=== PATIENT | male | born 1945 | race Caucasian/White ===

== ENCOUNTER 2019-05-20 05:17 | Inpatient (IN) ==
[2019-05-17 10:00] LABS: HEMATOCRIT 30.5 % (42.0-52.0); HEMOGLOBIN 9.2 g/dL (14.0-18.0); MCH 27.1 PG (27-31); MCHC 30.2 g/dL (33-37); MCV 89.7 FL (81-99); MPV 10.3 FL (7.4-10.4); RBC 3.4 XMIL (4.7-6.1); RDW 15.7 % (11.5-14.5); WBC 9.8 X1000 (4.8-10.8)
--- NOTE | 2019-05-17 10:10 | EKG Report ---
Test Performed on : 05/17/2019 09:17:24 AM Test Reason : PAT Blood Pressure : / mmHG Vent. Rate : 065 BPM Atrial Rate : 065 BPM P-R Int : 216 ms QRS Dur : 098 ms QT Int : 420 ms P-R-T Axes : 057 -03 055 degrees QTc Int : 436 ms Sinus rhythm. with 1st degree AV block. Nonspecific ST and T wave abnormality Abnormal ECG When compared with ECG of 02-MAY-2017 06:28, TN interval has increased Criteria for Inferior infarct are no longer present Confirmed by Alexandr Duke MD ([id number]) on 05/19/2019 3:22:30 PM
[2019-05-17 10:16] LABS: CALCIUM 9.1 mg/dL (8.8-10.2); CREATININE 1.2 mg/dL (0.7-1.2); POTASSIUM 4.8 mmol/L (3.5-5.1)
[2019-05-20] MEDS ORDERED: INVANZ 1 GM/NS 1 GM/50 ML IVPB ONE (05:42)
[2019-05-20] MEDS ORDERED: LR 1,000 ML ONE (05:42)
[2019-05-20] MEDS ORDERED: ENTEREG ONE (05:42)
[2019-05-20] MEDS ORDERED: DIPRIVAN 1% ONE (06:43)
[2019-05-20] MEDS ORDERED: XYLOCAINE-MPF 2% ONE (06:44)
[2019-05-20] MEDS ORDERED: ROBINUL ONE (06:44)
[2019-05-20] MEDS ORDERED: QUELICIN (DOSE) ONE (06:44)
[2019-05-20] MEDS ORDERED: ZOFRAN ONE ×2 (07:09→09:14)
[2019-05-20] MEDS ORDERED: OFIRMEV 1000 MG/ISOTONIC SOLN 1,000 MG/100 ML BOTTLE ONE (07:09)
[2019-05-20] MEDS ORDERED: BRIDION ONE (07:55)
[2019-05-20] MEDS ORDERED: EPHEDRINE ONE (07:59)
[2019-05-20] MEDS ORDERED: DILAUDID ONE (08:26)
[2019-05-20 08:57] LABS: URINE SOURCE CATH
[2019-05-20 09:01] LABS: BILIRUBIN URINE NEGATIVE (NEGATIVE); BLOOD URINE NEGATIVE (NEGATIVE); COLOR YELLOW; GLUCOSE URINE NEGATIVE (NEGATIVE); KETONE URINE NEGATIVE (NEGATIVE); LEUKOCYTES URINE NEGATIVE (NEGATIVE); NITRITE URINE NEGATIVE (NEGATIVE); PH URINE 5.5; PROTEIN URINE 30 mg/dL (NEGATIVE); SP GRAVITY URINE 1.015; TURBIDITY URINE HAZY (CLEAR); UROBILINOGEN URINE NORMAL (NORMAL)
[2019-05-20 09:04] LABS: UR EPITHELIAL CELLS <10 /HPF (<10); URINE BACTERIA NEGATIVE /HPF; URINE RBC <10 /HPF (<10); URINE WBC <10 /HPF (<10)
[2019-05-20] MEDS ORDERED: DECADRON ONE (09:14)
[2019-05-20] MEDS ORDERED: TORADOL ONE (09:14)
--- NOTE | 2019-05-20 09:14 | OPERATIVE NOTE ---
PROCEDURE DATE: 05/20/2019 PROCEDURE PERFORMED: Open transverse colectomy with mobilization of the splenic flexure and mobilization hepatic flexure. SURGEON: Talat Rizo MD MILK TESTER: Smitha Hi MD; who assisted in all parts of the procedure including the open dissection, resection, and closure. 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 DESCRIPTION OF PROCEDURE: Satisfactory general endotracheal anesthesia achieved abdomen is prepped and draped in a sterile fashion. We made a midline incision. We carried our incision through the subcutaneous tissue and through the midline fascia. The patient had a previous chevron incision and a previous lower midline incision. We carefully opened the fascia, took care not to injure the contents below. After entering the abdominal cavity, we took the adhesions down to the back of the anterior abdominal wall by in a chevron incision. We then mobilized the ascending colon and hepatic flexure, bringing that portion of the colon out of the retroperitoneum. We then divided the white line of Toldt along the descending colon and progressed cephalad toward the splenic flexure. The splenic flexure was way up into the left upper quadrant all the way to the diaphragm due to the patient's previous distal pancreatectomy and splenectomy. We carefully dissected the splenic flexure down until we could identify the Gerota's fascia. We then took the greater omentum off the transverse colon from right to left so that we could mobilize the transverse portion of the colon. The tumor was palpated. There were some nodes noted that were filled with Yoly Ink from the previous tattooing. We then chose a spot approximately 10 cm proximal to the lesion and cleaned off the colon and transected it there with a CRISTINA 80 blue cartridge. We scored the peritoneum all the way to the takeoff of the middle colic vessels and we scored the peritoneum on the left side as well to a portion of the transverse colon that was about at least 10 cm from the tumor as well. Here we also divided the colon with a CRISTINA 80 blue cartridge. The greater omentum had been , we then began dividing the mesentery from peripheral toward the base of the mesentery using the LigaSure. As we reached the base of the mesentery at the takeoff of the middle colic vessels we clamped the middle colic vessels with Yuki clamps and divided the tissue and handed off the specimen. We suture ligated the vessels with 2-0 silk suture ligature. We then approximated the end of the distal transverse colon to the end of the ascending colon and we placed them [id number], placed a 3-0 silk to approximate them [id number]. We cut off the corners of the bowel introduced the CRISTINA 80 blue cartridge, and did a [id number] stapled anastomosis. We grasped the open end with Allis and then used a TA 60 blue cartridge to staple off of each end of the colon. We used 3-0 silks in a Lembert fashion to over sew the staple line. We used a 3-0 silk at the opposite end of the stapled anastomosis to take the tension off the staple line. We changed gloves at this point. We then closed the mesentery with 3-0 silks. Anastomosis was satisfactory patent. Hemostasis was satisfactory. We irrigated out the area of the operation. Again, hemostasis was satisfactory. The left upper quadrant was hemostatic. No other abnormalities were identified intra-abdominally. We then proceeded to close the peritoneum with a running 2-0 chromic. We closed the fascia with running #2 Prolene. The mass was noted in the anterior abdominal wall subcutaneous fat, we removed it and sent it for pathology. We irrigated out the subcutaneous tissue, then closed the skin with robin. Sterile dressings applied. He tolerated it well was sent to the recovery room in satisfactory condition. cc: Talat Rizo MD MTDD
[2019-05-20 09:17] LABS: URINE CASTS EPITHELIAL PRESENT; URINE CRYSTALS NONE SEEN; URINE SMALL ROUND CELLS NONE SEEN; URINE YEAST NONE SEEN
[2019-05-20] MEDS ORDERED: NS 1,000 ML ONE (09:27)
[2019-05-20] MEDS ORDERED: NITROGLYCERIN SL PRN (10:21)
[2019-05-20] MEDS ORDERED: ZOFRAN IV PRN (10:21)
[2019-05-20] MEDS: COZAAR PO SCH (11:22)
[2019-05-20] MEDS: JANUVIA PO SCH ×2 (11:24→20:40)
[2019-05-20] MEDS: GLUCOPHAGE PO SCH ×2 (11:24→20:40)
[2019-05-20] MEDS: PERIDEX MT SCH ×2 (11:25→20:41)
[2019-05-20] MEDS: LIORESAL PO SCH ×2 (11:26→20:41)
[2019-05-20] MEDS: LOPRESSOR PO SCH ×2 (11:33→20:39)
[2019-05-20] MEDS: DILAUDID IV PRN ×5 (11:33→23:55)
[2019-05-20] MEDS: PROTONIX PO SCH (11:33)
[2019-05-20] MEDS: OFIRMEV 1000 MG/ISOTONIC SOLN 1,000 MG/100 ML BOTTLE IV SCH ×2 (13:19→20:35)
--- NOTE | 2019-05-20 16:00 | GENERAL SURGERY PROGRESS NOTE ---
DATE: 05/20/2019 Mr. Jacobsen is awake and alert, doing generally well. His hemodynamics are satisfactory. His bandage is dry. We will try to control his pain with the Ofirmev and Dilaudid. cc: Talat Rizo MD
[2019-05-20] MEDS: NS 1,000 ML IV SCH (19:34)
[2019-05-20] MEDS: NORVASC PO SCH (20:38)
[2019-05-20] MEDS: ULTRAM PO PRN (20:38)
[2019-05-20] MEDS: LEXAPRO PO SCH (20:41)
[2019-05-20] MEDS: LOVENOX SUBQ SCH (20:41)
[2019-05-20] MEDS ORDERED: PATIENT'S OWN MED PO SCH (21:00)
[2019-05-20] MEDS: PATIENT'S OWN MED PO SCH (21:28)
[2019-05-21] MEDS: ULTRAM PO PRN (02:28)
[2019-05-21] MEDS: OFIRMEV 1000 MG/ISOTONIC SOLN 1,000 MG/100 ML BOTTLE IV SCH ×4 (02:28→21:18)
[2019-05-21] MEDS: NS 1,000 ML IV SCH ×2 (03:00→15:30)
[2019-05-21] MEDS: DILAUDID IV PRN ×6 (03:00→20:45)
[2019-05-21 06:52] LABS: HEMATOCRIT 26.1 % (42.0-52.0); HEMOGLOBIN 8.2 g/dL (14.0-18.0); MCH 28.6 PG (27-31); MCHC 31.4 g/dL (33-37); MCV 90.9 FL (81-99); MPV 10.2 FL (7.4-10.4); RBC 2.87 XMIL (4.7-6.1); RDW 16.3 % (11.5-14.5); WBC 14.01 X1000 (4.8-10.8)
[2019-05-21 07:13] LABS: AGAP 11; BUN 12 mg/dL (8-22); CALCIUM 8.9 mg/dL (8.8-10.2); CHLORIDE 102 mmol/L (98-107); COSMO 276; ESTIMATED GFR > 60; GLUCOSE 174 mg/dL (70-104); POTASSIUM 4.3 mmol/L (3.5-5.1); SODIUM 136 mmol/L (136-145); TCO2 23 mmol/L (25-35)
[2019-05-21] MEDS ORDERED: SODIUM CHLORIDE 0.9% INJ PRN (08:08)
[2019-05-21] MEDS ORDERED: PHENERGAN IV PRN (08:08)
[2019-05-21] MEDS: LIORESAL PO SCH ×2 (08:30→21:18)
[2019-05-21] MEDS: PERIDEX MT SCH ×2 (08:30→21:20)
[2019-05-21] MEDS: COZAAR PO SCH (08:31)
[2019-05-21] MEDS: JANUVIA PO SCH ×2 (08:31→21:18)
[2019-05-21] MEDS: GLUCOPHAGE PO SCH ×2 (08:31→21:18)
[2019-05-21] MEDS: ENTEREG PO SCH ×2 (08:31→21:17)
[2019-05-21] MEDS: PROTONIX PO SCH (08:31)
[2019-05-21] MEDS: LOPRESSOR PO SCH ×2 (08:32→21:17)
--- NOTE | 2019-05-21 08:35 | GENERAL SURGERY PROGRESS NOTE ---
DATE: 05/21/2019 SUBJECTIVE: Mr. Jacobsen did not get much rest last night. OBJECTIVE: He is afebrile. Heart rate 90. Blood pressure 137/63. He has bilateral breath sounds, even though they are better on the right than the left. His urine output appears acceptable. White count is 14,000, hemoglobin 8.2, hematocrit 26, BUN 12, creatinine 1. PLAN: He did have some nausea through the night. I will add Phenergan to his regimen in case Zofran is not adequate, and hope that we can avoid an NG tube. cc: Talat Rizo MD
[2019-05-21] MEDS: LEXAPRO PO SCH (21:17)
[2019-05-21] MEDS: NORVASC PO SCH (21:18)
[2019-05-21] MEDS: LOVENOX SUBQ SCH (21:18)
[2019-05-21] MEDS: PATIENT'S OWN MED PO SCH ×2 (21:20)
[2019-05-22] MEDS: ULTRAM PO PRN ×3 (00:30→18:00)
[2019-05-22] MEDS: DILAUDID IV PRN ×3 (00:31→08:38)
[2019-05-22] MEDS: NS 1,000 ML IV SCH ×3 (01:55→12:25)
[2019-05-22] MEDS: OFIRMEV 1000 MG/ISOTONIC SOLN 1,000 MG/100 ML BOTTLE IV SCH ×4 (01:55→19:41)
--- NOTE | 2019-05-22 06:05 | GENERAL SURGERY PROGRESS NOTE ---
DATE: 05/22/2019 SUBJECTIVE: The patient is doing okay. He did have some nausea yesterday and threw up. He has not passed any gas. OBJECTIVE: Vital Signs: The patient is currently afebrile. His vital signs are stable. General: No acute distress. Cardiovascular: Regular rate and rhythm. Lungs: Grossly clear. No increased labored breathing. Abdomen: Soft. Incision with dressing intact. Appropriately tender. Hypoactive bowel sounds. ASSESSMENT AND PLAN: A 73-year-old gentleman, currently postoperative day #2 from open transverse colectomy. Postoperative state: At this time the patient still likely has a postoperative ileus. He has had some nausea so we will keep him NPO with just ice chips right now. He is on tramadol for pain medicine. He is also on Lovenox. His Jaquez catheter is going to come out. We also have him on Entereg and Tylenol. We will continue to monitor him. Hopefully he will start to have some return of bowel function in the near future. cc: MD Talat Fernández MD [facility] HOSPITALFercho
[2019-05-22 06:50] LABS: AGAP 8; BUN 11 mg/dL (8-22); CALCIUM 8.7 mg/dL (8.8-10.2); CHLORIDE 106 mmol/L (98-107); COSMO 280; CREATININE 0.7 mg/dL (0.7-1.2); ESTIMATED GFR > 60; GLUCOSE 122 mg/dL (70-104); POTASSIUM 4.1 mmol/L (3.5-5.1); SODIUM 140 mmol/L (136-145); TCO2 26 mmol/L (25-35)
[2019-05-22 06:55] LABS: BASO# 0.01 X1000 (0.0-0.2); BASO% 0.1 % (0.0-0.8); EOS# 0.43 X1000 (0.0-0.7); EOS% 2.9 % (0.0-10.0); HEMATOCRIT 24.6 % (42.0-52.0); HEMOGLOBIN 7.5 g/dL (14.0-18.0); IMM GRAN# 0.02 X1000 (0.0-0.04); IMM GRAN% 0.1 % (0.0-0.5); LYMPH# 1.22 X1000 (1.2-3.4); LYMPH% 8.3 % (20.5-51.1); MCH 27.7 PG (27-31); MCHC 30.5 g/dL (33-37); MCV 90.8 FL (81-99); MONO# 1.34 X1000 (0.11-0.59); MONO% 9.1 % (1.7-9.3); MPV 10.9 FL (7.4-10.4); NEUT% 79.5 % (42.2-75.2); PLT 346 X1000 (130-400); RBC 2.71 XMIL (4.7-6.1); RDW 16.2 % (11.5-14.5); WBC 14.72 X1000 (4.8-10.8)
[2019-05-22] MEDS: LOPRESSOR PO SCH ×2 (08:41→20:01)
[2019-05-22] MEDS: GLUCOPHAGE PO SCH ×2 (08:41→20:00)
[2019-05-22] MEDS: JANUVIA PO SCH ×2 (08:41→20:01)
[2019-05-22] MEDS: ENTEREG PO SCH ×2 (08:41→20:01)
[2019-05-22] MEDS: LIORESAL PO SCH ×2 (08:41→20:01)
[2019-05-22] MEDS: PROTONIX PO SCH (08:41)
[2019-05-22] MEDS: COZAAR PO SCH (08:41)
[2019-05-22] MEDS: PERIDEX MT SCH ×2 (08:42→20:02)
[2019-05-22] MEDS: NORVASC PO SCH (20:01)
[2019-05-22] MEDS: LEXAPRO PO SCH (20:01)
[2019-05-22] MEDS: PATIENT'S OWN MED PO SCH ×2 (20:02)
[2019-05-22] MEDS: LOVENOX SUBQ SCH (20:03)
[2019-05-23] MEDS: ULTRAM PO PRN ×3 (00:06→17:28)
[2019-05-23] MEDS: OFIRMEV 1000 MG/ISOTONIC SOLN 1,000 MG/100 ML BOTTLE IV SCH ×4 (04:05→22:58)
--- NOTE | 2019-05-23 06:27 | GENERAL SURGERY PROGRESS NOTE ---
DATE: 05/23/2019 SUBJECTIVE: The patient did have some hallucinations yesterday. It sounds like it was related to his pain medicine. We will try to hold his Dilaudid at this point. He also had a low-grade fever of 99.8. He has not passed any gas but he is not sick to his stomach. OBJECTIVE: Vital Signs: Patient is currently afebrile. Vital signs stable. General: No acute distress. Cardiovascular: Regular rate and rhythm. Lungs: Grossly clear. Abdomen: Soft, nondistended, some bowel sounds auscultated. Incision is healing with dressing intact. LABORATORY: White blood cell count 14.7, which is slightly up, hematocrit 24.6, which is down slightly. Remainder of labs reviewed. ASSESSMENT AND PLAN: A 73-year-old gentleman, currently postoperative day #3 from open transverse colectomy. Postoperative state. At this time, I think he has made some improvements with postoperative ileus. We will give him some sips of clears, who has had a slight increase in his white blood cell count and a slight decrease in his hematocrit, so we will repeat those in the morning. As far as his hallucinations are concerned, we will try to avoid the Dilaudid and just try to do tramadol. He seems to be neurologically intact at this point. I do not see any obvious deficits but if this continues, may need to consider getting a CT scan. cc: MD Talat Fernández MD
[2019-05-23] MEDS: NS 1,000 ML IV SCH ×3 (08:35→18:18)
[2019-05-23] MEDS: LIORESAL PO SCH ×2 (08:35→23:01)
[2019-05-23] MEDS: GLUCOPHAGE PO SCH ×3 (08:35→23:18)
[2019-05-23] MEDS: ENTEREG PO SCH ×2 (08:36→23:00)
[2019-05-23] MEDS: JANUVIA PO SCH ×2 (08:36→23:00)
[2019-05-23] MEDS: LOPRESSOR PO SCH ×2 (08:36→23:00)
[2019-05-23] MEDS: COZAAR PO SCH (08:36)
[2019-05-23] MEDS: PERIDEX MT SCH ×2 (08:36→23:00)
[2019-05-23] MEDS: PROTONIX PO SCH (08:36)
[2019-05-23] MEDS: LEXAPRO PO SCH (22:59)
[2019-05-23] MEDS: LOVENOX SUBQ SCH (23:00)
[2019-05-23] MEDS: NORVASC PO SCH ×2 (23:00→23:03)
[2019-05-23] MEDS: PATIENT'S OWN MED PO SCH ×2 (23:01→23:02)
[2019-05-24] MEDS: NS 1,000 ML IV SCH (04:34)
[2019-05-24] MEDS: OFIRMEV 1000 MG/ISOTONIC SOLN 1,000 MG/100 ML BOTTLE IV SCH ×4 (04:34→23:31)
[2019-05-24] MEDS: ULTRAM PO PRN ×3 (04:35→20:43)
[2019-05-24 07:01] LABS: BASO# 0.02 X1000 (0.0-0.2); BASO% 0.2 % (0.0-0.8); EOS# 0.98 X1000 (0.0-0.7); EOS% 8.3 % (0.0-10.0); HEMATOCRIT 26.3 % (42.0-52.0); IMM GRAN# 0.03 X1000 (0.0-0.04); IMM GRAN% 0.3 % (0.0-0.5); LYMPH# 0.95 X1000 (1.2-3.4); MCH 26.9 PG (27-31); MCHC 30.4 g/dL (33-37); MCV 88.6 FL (81-99); MONO# 1.02 X1000 (0.11-0.59); MONO% 8.6 % (1.7-9.3); MPV 10.7 FL (7.4-10.4); NEUT# 8.86 X1000 (1.4-6.5); NEUT% 74.6 % (42.2-75.2); PLT 396 X1000 (130-400); RBC 2.97 XMIL (4.7-6.1); RDW 16.5 % (11.5-14.5); WBC 11.86 X1000 (4.8-10.8)
[2019-05-24] MEDS ORDERED: SALINE LOCK IV FLUID XX ONE (07:25)
--- NOTE | 2019-05-24 07:37 | GENERAL SURGERY PROGRESS NOTE ---
DATE: 05/24/2019 SUBJECTIVE: Mr. Jacobsen is now 4 days after his transverse colectomy. His pain is better controlled. He has been passing flatus. He has been taking sips of water only. Today, he is afebrile. OBJECTIVE: Vital Signs: Heart rate 62, blood pressure 127/54. Lungs: Sound clear. Abdomen: He has bowel sounds. LABORATORY: Reveals a white count 11,800, hemoglobin 8, hematocrit 26. His glucose has been in the 72 range. PLAN: The plan today is to reduce his IV rate to KVO. We will start him on clear liquids. cc: Talat Rizo MD
[2019-05-24] MEDS: PERIDEX MT SCH ×2 (09:43→20:42)
[2019-05-24] MEDS: COZAAR PO SCH (09:44)
[2019-05-24] MEDS: GLUCOPHAGE PO SCH ×2 (09:44→20:44)
[2019-05-24] MEDS: JANUVIA PO SCH ×2 (09:45→20:43)
[2019-05-24] MEDS: ENTEREG PO SCH ×2 (09:47→20:43)
[2019-05-24] MEDS: LOPRESSOR PO SCH ×2 (09:47→20:42)
[2019-05-24] MEDS: LIORESAL PO SCH ×2 (09:47→20:42)
[2019-05-24] MEDS: PROTONIX PO SCH (09:47)
[2019-05-24] MEDS: LEXAPRO PO SCH (20:42)
[2019-05-24] MEDS: LOVENOX SUBQ SCH (20:43)
[2019-05-24] MEDS: AMBIEN PO SCH (20:44)
[2019-05-24] MEDS: NORVASC PO SCH (20:44)
[2019-05-25] MEDS: PATIENT'S OWN MED PO SCH ×4 (00:25→22:04)
[2019-05-25] MEDS: ULTRAM PO PRN ×3 (02:53→18:24)
[2019-05-25] MEDS: OFIRMEV 1000 MG/ISOTONIC SOLN 1,000 MG/100 ML BOTTLE IV SCH ×5 (05:55→22:03)
[2019-05-25] MEDS: COZAAR PO SCH (09:25)
[2019-05-25] MEDS: LIORESAL PO SCH ×2 (09:25→20:22)
[2019-05-25] MEDS: JANUVIA PO SCH ×3 (09:26→20:22)
[2019-05-25] MEDS: ENTEREG PO SCH ×2 (09:26→20:22)
[2019-05-25] MEDS: GLUCOPHAGE PO SCH ×3 (09:26→20:22)
[2019-05-25] MEDS: LOPRESSOR PO SCH ×2 (09:26→20:21)
[2019-05-25] MEDS: PROTONIX PO SCH (09:27)
[2019-05-25] MEDS: PERIDEX MT SCH ×2 (09:27→20:24)
--- NOTE | 2019-05-25 10:42 | GENERAL SURGERY PROGRESS NOTE ---
DATE: 05/25/2019 Mr. Jacobsen is doing well. He is tolerating his liquids well. His bowels continue to move. His wound looks fine. The plan is to advance him to solid food today and we will send him home in the morning if all continues well. His pathology report remains pending. cc: Talat Rizo MD
[2019-05-25] MEDS: LEXAPRO PO SCH (20:21)
[2019-05-25] MEDS: AMBIEN PO SCH (20:22)
[2019-05-25] MEDS: NORVASC PO SCH (20:22)
[2019-05-25] MEDS: LOVENOX SUBQ SCH (20:24)
[2019-05-26] MEDS: OFIRMEV 1000 MG/ISOTONIC SOLN 1,000 MG/100 ML BOTTLE IV SCH (04:37)
[2019-05-26 07:33] VITALS: BP 138/60
--- NOTE | 2019-05-26 07:41 | GENERAL SURGERY PROGRESS NOTE ---
DATE: 05/26/2019 SUBJECTIVE: Mr. Jacobsen is doing generally well. He is afebrile. OBJECTIVE: Vital Signs: Heart rate 69. Blood pressure 125/56. General: He tolerated solid food fine. His bowels moved. His wound is fine. PLAN: The plan will be to discharge him today. He will resume his usual medications. We will write him something for discomfort, and return to see me in the office in a week. cc: Talat Rizo MD
[2019-05-26] MEDS: LOPRESSOR PO SCH (08:02)
[2019-05-26] MEDS: GLUCOPHAGE PO SCH (08:02)
[2019-05-26] MEDS: PERIDEX MT SCH (08:03)
[2019-05-26] MEDS: PROTONIX PO SCH (08:03)
[2019-05-26] MEDS: JANUVIA PO SCH (08:03)
[2019-05-26] MEDS: COZAAR PO SCH (08:03)
[2019-05-26] MEDS: ENTEREG PO SCH (08:03)
[2019-05-26] MEDS: LIORESAL PO SCH (08:03)
--- NOTE | 2019-05-28 09:44 | DISCHARGE SUMMARY ---
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 PRIMARY PROCEDURE: Transverse colectomy and removal of the mass in the abdominal wall. HOSPITAL COURSE: This is a 73-year-old who was admitted with a diagnosis of a small cell carcinoma of the transverse colon. He went to the operating room after outpatient prep and underwent a transverse colectomy. The small mass on the abdominal wall as well. The transverse colon was removed and the small mass of the abdominal wall. Postoperatively, he did generally well. He had an ileus for a few days but then by 05/22 we were able to start him on clear liquids. We did advance his diet subsequently and his ileus resolved and he began passing flatus and having bowel movements. We advanced his diet such that by 05/25 it was felt he could be discharged. His pathology was pending at the time of the discharge. DISPOSITION: He was is sent home on his usual medications with the addition of Ultram for discomfort. Wound care was discussed. He will return to the office in a week. cc: MD Lizandro Horner MD Babu Kantamneni, MD
== END 2019-05-26 09:50 | disposition home or self-care (01) | DRG 827 ==
LOC: SURHOLD 05:17 → 4N 10:19
PROVIDERS: ADMIT Surgery; ATTEND Surgery